=== PATIENT | male | born 1945 | race Hispanic/Latino ===

== ENCOUNTER 2017-11-25 12:33 | Emergency (ER) | payer MEDICARE ==
[~2017-11-25 12:33] MED LIST: ACET500C54 PO; ASPI-1197 PO; CALC-866 PO; DOXY100C2 PO; FISH1CAP63 PO; FOLI0.4T2 PO; GUAI-1235 PO; HYDR25TA PO; INSU3INS3 SQ; LOSA50TA37 PO; METF10004 PO; METOPROLOL ER PO; NITR0.4T SL; PANT40TA25 PO; PRAV10TA39 PO; REPA1TAB5 PO; TAMS0.4C32 PO; gas relief PO; iron PO; multivitamin PO; vitamin b12
[2017-11-25] MEDS ORDERED: MORPHINE SULFATE 4 MG/1ML SYG ONE (12:53)
[2017-11-25] MEDS ORDERED: ONDANSETRON HCL 4 MG/2 ML VIAL ONE (12:53)
[2017-11-25 13:00] LABS: BASOPHILS % (AUTO) 0.5 % (0.0-5.0); EOSINOPHILS % (AUTO) 0.3 % (0.0-8.0); MEAN CORPUSCULAR HGB CONC 34.4 g/dL (32.0-36.0); MEAN CORPUSCULAR VOLUME 89.9 fL (79-99); MONOCYTES % (AUTO) 7.8 % (3.0-13.0); NEUTROPHILS % (AUTO) 81.4 % (40.0-77.0); PLATELET COUNT (AUTO) 286 K/uL (130-400); RED BLOOD CELL COUNT(AUTO) 4.11 MIL/uL (4.50-6.20); RED CELL DISTRIBUTION WIDTH 14.2 % (11.0-15.5); WHITE BLOOD COUNT (AUTO) 16.4 K/uL (4.8-10.8)
[2017-11-25 13:10] LABS: CREATININE 0.7 mg/dL (0.5-1.5); POTASSIUM 3.5 mmol/L (3.5-5.1)
[2017-11-25 13:15] LABS: ALBUMIN 3.5 g/dL (3.5-5.0); BILIRUBIN,TOTAL 0.5 mg/dL (0.2-1.0); TOTAL PROTEIN, SERUM 7.4 g/dL (6.0-8.3)
[2017-11-25 13:26] LABS: CREATINE KINASE MB 1.5 ng/mL (0.5-3.6)
[2017-11-25] MEDS ORDERED: HYDROMORPHONE HCL 2 MG/ML VIAL ONE (16:21)
== END 2017-11-25 19:06 | disposition home or self-care (01) ==
LOC: EDH 12:33
DX: G62.9 Polyneuropathy, unspecified (principal); I25.10 Atherosclerotic heart disease of native coronary artery without angina pectoris; E11.9 Type 2 diabetes mellitus without complications; E78.5 Hyperlipidemia, unspecified; I10 Essential (primary) hypertension; Z90.49 Acquired absence of other specified parts of digestive tract
CPT/HCPCS: 36415; 71045; 80053; 82550; 82553; 82948; 84484; 85025; 93005; 96374; 96375; 99285; J1170; J2270; J2405

== ENCOUNTER 2018-01-16 15:36 | Emergency (ER) | payer MEDICARE ==
[2018-01-16] MEDS ORDERED: SODIUM CHLORIDE 0.9% 1000ML 1,000 ML IV ONE (16:11)
[2018-01-16] MEDS ORDERED: ONDANSETRON HCL MDV 20ML 2 MG/ML VIAL ONE (16:11)
[2018-01-16 16:12] LABS: EOSINOPHILS % (AUTO) 4.8 % (0.0-8.0); HEMATOCRIT 36.9 % (42-54); LYMPHOCYTES % (AUTO) 29.8 % (21.0-51.0); MEAN CORPUSCULAR HEMOGLOBIN 32.6 pg (27.0-33.0); MEAN CORPUSCULAR HGB CONC 35.4 g/dL (32.0-36.0); MEAN CORPUSCULAR VOLUME 92.1 fL (79-99); NEUTROPHILS % (AUTO) 56.4 % (40.0-77.0); NUCLEATED RED BLOOD CELLS 0.2 % (0.0-0.19); PLATELET COUNT (AUTO) 240 K/uL (130-400); RED BLOOD CELL COUNT(AUTO) 4.01 MIL/uL (4.50-6.20); WHITE BLOOD COUNT (AUTO) 7.8 K/uL (4.8-10.8)
[2018-01-16] MEDS ORDERED: MORPHINE SULFATE 4 MG/1ML SYG ONE (16:12)
[2018-01-16 16:25] LABS: CREATININE 0.9 mg/dL (0.5-1.5); POTASSIUM 3.8 mmol/L (3.5-5.1)
[2018-01-16 16:29] LABS: ALBUMIN 3.8 g/dL (3.5-5.0); BILIRUBIN,TOTAL 0.4 mg/dL (0.2-1.0); TOTAL PROTEIN, SERUM 7.6 g/dL (6.0-8.3)
== END 2018-01-16 18:33 | disposition home or self-care (01) ==
LOC: EDH 15:36
DX: R51 Headache (principal); I10 Essential (primary) hypertension; I25.10 Atherosclerotic heart disease of native coronary artery without angina pectoris; E11.9 Type 2 diabetes mellitus without complications; E78.5 Hyperlipidemia, unspecified
CPT/HCPCS: 36415; 70450; 80053; 85025; 96361; 96374; 96375; 99285; J2270; J7030

== ENCOUNTER 2018-01-29 04:17 | Observation (INO) | payer MEDICARE ==
[~2018-01-29] VITALS: Ht 167.6 cm; Wt 117.9 kg
[2018-01-29 04:38] LABS: BASOPHILS % (AUTO) 0.8 % (0.0-5.0); EOSINOPHILS % (AUTO) 4.9 % (0.0-8.0); HEMATOCRIT 36.4 % (42-54); LYMPHOCYTES % (AUTO) 37.7 % (21.0-51.0); MEAN CORPUSCULAR HEMOGLOBIN 31.4 pg (27.0-33.0); MEAN CORPUSCULAR VOLUME 92.4 fL (79-99); MONOCYTES % (AUTO) 9.5 % (3.0-13.0); NEUTROPHILS % (AUTO) 47.1 % (40.0-77.0); PLATELET COUNT (AUTO) 259 K/uL (130-400); RED BLOOD CELL COUNT(AUTO) 3.95 MIL/uL (4.50-6.20); WHITE BLOOD COUNT (AUTO) 8.8 K/uL (4.8-10.8)
[2018-01-29] MEDS ORDERED: NITROGLYCERIN 1GM/1 INCH PACKET TD ONE (04:45)
[2018-01-29] MEDS ORDERED: ASPIRIN 325 MG TABLET ONE (04:45)
[2018-01-29] MEDS ORDERED: ACETAMINOPHEN-CODEINE ELIXIR 5 ML UDCUP ONE (04:46)
[2018-01-29] MEDS ORDERED: MORPHINE SULFATE 4 MG/1ML SYG ONE (04:46)
[2018-01-29] MEDS ORDERED: LIDOCAINE HCL 2% VISCOUS 15 ML UDCUP ONE (04:47)
[2018-01-29] MEDS ORDERED: MAGNESIUM HYDROXIDE 30 ML/UDCUP ONE (04:47)
[2018-01-29 04:56] LABS: INR 1.03 (0.85-1.15); PARTIAL THROMBOPLASTIN TIME 24.7 SEC (26.3-35.5); PROTHROMBIN TIME 10.8 SEC (9.6-11.6)
[2018-01-29 05:02] LABS: CREATININE 0.9 mg/dL (0.5-1.5); POTASSIUM 3.4 mmol/L (3.5-5.1)
[2018-01-29 05:03] LABS: ALBUMIN 3.7 g/dL (3.5-5.0); BILIRUBIN,TOTAL 0.3 mg/dL (0.2-1.0); TOTAL PROTEIN, SERUM 7.3 g/dL (6.0-8.3)
[2018-01-29 05:15] LABS: B-TYPE NATRIURETIC PEPTIDE 7 pg/mL (0-100)
[2018-01-29 06:10] VITALS: BP 139/73
[2018-01-29] MEDS ORDERED: REPA1TAB5 PO (07:52)
[2018-01-29] MEDS ORDERED: OMEG1CAP67 PO (07:52)
[2018-01-29] MEDS ORDERED: GABA-531 PO (07:52)
[2018-01-29] MEDS ORDERED: INSLAN SQ (07:53)
[2018-01-29] MEDS ORDERED: GUAIFENESIN-DM 200/20 MG 10 ML PO PRN (11:00)
[2018-01-29] MEDS ORDERED: ACETAMINOPHEN 325 MG TAB PO PRN (11:00)
[2018-01-29] MEDS ORDERED: LACTULOSE 20 GM/30 ML UDCUP PO PRN (11:00)
[2018-01-29] MEDS ORDERED: ONDANSETRON HCL MDV 20ML 2 MG/ML VIAL IVP PRN (11:00)
[2018-01-29] MEDS ORDERED: NITROGLYCERIN 0.4 MG SL TAB SL PRN (11:00)
[2018-01-29 12:00] VITALS: BP 143/76
[2018-01-29] MEDS: **HM** VIT D3 5000 UNITS PO SCH (12:00)
[2018-01-29 13:41] LABS: CREATINE KINASE MB 2.2 ng/mL (0.5-3.6); CREATINE KINASE, TOTAL 181 U/L (21-232); MYOGLOBIN 149 ng/mL (10-92); TROPONIN I < 0.04 ng/mL (0.00-0.06)
[2018-01-29 16:00] VITALS: BP 128/72
[2018-01-29] MEDS: FISH OIL 1000 MG/CAP PO SCH ×2 (17:58→20:57)
[2018-01-29] MEDS: METFORMIN HCL 500 MG TABLET PO SCH (17:58)
[2018-01-29] MEDS: REPAGLINIDE 1 MG TAB PO SCH ×2 (17:59→20:57)
[2018-01-29 19:30] VITALS: BP 139/64
[2018-01-29] MEDS: TAMSULOSIN HCL 0.4 MG CAP.ER.24H PO SCH (20:57)
[2018-01-29] MEDS: GABAPENTIN 300 MG CAPSULE PO SCH (20:57)
[2018-01-29] MEDS: ASPIRIN 81MG TAB.CHEW PO SCH (20:57)
[2018-01-29] MEDS ORDERED: **HM** PRAVASTATIN 10MG PO SCH (21:00)
[2018-01-29] MEDS: INSULIN GLARGINE 100 UNITS/ML 10 ML VIAL SQ SCH (21:04)
[2018-01-29 21:14] LABS: APPEARANCE,URINE Clear (CLEAR); BILIRUBIN,URINE Negative (NEGATIVE); COLOR,URINE Yellow (YELLOW); GLUCOSE, URINE (UA) Negative (NEGATIVE); KETONES,URINE Negative (NEGATIVE); LEUKOCYTE ESTERASE ,URINE Negative (NEGATIVE); NITRATE,URINE Negative (NEGATIVE); OCCULT BLOOD,URINE Negative (NEGATIVE); PH,URINE 6.5 (5.0-8.0); PROTEIN,URINE Trace (NEGATIVE); UROBILINOGEN,URINE 0.2 mg/dL (0.2-1.0)
[2018-01-29 21:22] LABS: CREATINE KINASE MB 2.6 ng/mL (0.5-3.6); CREATINE KINASE, TOTAL 260 U/L (21-232); MYOGLOBIN 130 ng/mL (10-92); TROPONIN I < 0.04 ng/mL (0.00-0.06)
[2018-01-29 23:58] VITALS: BP 126/59
[2018-01-30 04:02] VITALS: BP 144/73
[2018-01-30 06:40] LABS: CREATININE 0.7 mg/dL (0.5-1.5); MAGNESIUM 1.5 mg/dL (1.80-2.40); POTASSIUM 4.1 mmol/L (3.5-5.1)
[2018-01-30 06:44] LABS: HEMOGLOBIN A1C 6.7 % (4.0-6.0)
[2018-01-30 08:00] VITALS: BP 143/64
[2018-01-30] MEDS: FOLIC ACID 1 MG TABLET PO SCH (08:20)
[2018-01-30] MEDS: METFORMIN HCL 500 MG TABLET PO SCH ×2 (08:20→22:23)
[2018-01-30] MEDS: LOSARTAN 50 MG TABLET PO SCH (08:20)
[2018-01-30] MEDS: PANTOPRAZOLE SODIUM 40 MG TABLET.DR PO SCH (08:20)
[2018-01-30] MEDS: HYDROCHLOROTHIAZIDE 25 MG TABLET PO SCH (08:20)
[2018-01-30] MEDS: GABAPENTIN 300 MG CAPSULE PO SCH ×2 (08:20→22:20)
[2018-01-30] MEDS: ENOXAPARIN SODIUM 40 MG/0.4 ML SYRINGE SQ SCH (08:21)
[2018-01-30] MEDS: INSULIN GLARGINE 100 UNITS/ML 10 ML VIAL SQ SCH ×2 (08:30→22:25)
[2018-01-30] MEDS: REPAGLINIDE 1 MG TAB PO SCH ×2 (09:00→22:24)
[2018-01-30] MEDS: FISH OIL 1000 MG/CAP PO SCH ×2 (09:00→22:23)
[2018-01-30] MEDS ORDERED: REGADENOSON 0.4 MG/5 ML PF SYG IVP SCH (11:00)
[2018-01-30 12:00] VITALS: BP 137/69
[2018-01-30] MEDS: **HM** VIT D3 5000 UNITS PO SCH (12:00)
[2018-01-30 16:00] VITALS: BP 151/76
[2018-01-30 19:45] VITALS: BP 153/71
[2018-01-30] MEDS ORDERED: ATORVASTATIN CALCIUM 40 MG TABLET PO SCH (21:00)
[2018-01-30] MEDS: TAMSULOSIN HCL 0.4 MG CAP.ER.24H PO SCH (22:20)
[2018-01-30] MEDS: METOPROLOL TARTRATE 50 MG TAB PO SCH (22:20)
[2018-01-30] MEDS: ASPIRIN 81MG TAB.CHEW PO SCH (22:20)
[2018-01-30 23:45] VITALS: BP 136/79
[2018-01-31 04:00] VITALS: BP 138/76
[2018-01-31 07:00] VITALS: BP 140/68
[2018-01-31] MEDS: HYDROCHLOROTHIAZIDE 25 MG TABLET PO SCH (09:20)
[2018-01-31] MEDS: LOSARTAN 50 MG TABLET PO SCH (09:20)
[2018-01-31] MEDS: METOPROLOL TARTRATE 50 MG TAB PO SCH (09:20)
[2018-01-31] MEDS: FOLIC ACID 1 MG TABLET PO SCH (09:21)
[2018-01-31] MEDS: METFORMIN HCL 500 MG TABLET PO SCH ×2 (09:21→16:38)
[2018-01-31] MEDS: GABAPENTIN 300 MG CAPSULE PO SCH (09:21)
[2018-01-31] MEDS: REPAGLINIDE 1 MG TAB PO SCH ×2 (09:25→16:38)
[2018-01-31] MEDS: PANTOPRAZOLE SODIUM 40 MG TABLET.DR PO SCH (09:25)
[2018-01-31] MEDS: FISH OIL 1000 MG/CAP PO SCH ×2 (09:25→16:38)
[2018-01-31] MEDS: ENOXAPARIN SODIUM 40 MG/0.4 ML SYRINGE SQ SCH (09:26)
[2018-01-31] MEDS: INSULIN GLARGINE 100 UNITS/ML 10 ML VIAL SQ SCH (09:33)
[2018-01-31 11:00] VITALS: BP 148/68
[2018-01-31] MEDS: **HM** VIT D3 5000 UNITS PO SCH (12:00)
[2018-01-31 15:00] VITALS: BP 148/84
== END 2018-01-31 17:35 | disposition home or self-care (01) ==
LOC: EDH 04:17 → EDHIP 05:45 → 3AH 05:58
PROVIDERS: ADMIT Family Medicine; ATTEND Family Medicine
DX: I25.10 Atherosclerotic heart disease of native coronary artery without angina pectoris (principal); I10 Essential (primary) hypertension; E78.5 Hyperlipidemia, unspecified; E11.40 Type 2 diabetes mellitus with diabetic neuropathy, unspecified; E11.51 Type 2 diabetes mellitus with diabetic peripheral angiopathy without gangrene; E66.01 Morbid (severe) obesity due to excess calories; G45.9 Transient cerebral ischemic attack, unspecified; Z86.73 Personal history of transient ischemic attack (TIA), and cerebral infarction without residual deficits; Z90.49 Acquired absence of other specified parts of digestive tract
CPT/HCPCS: 36415 ×2; 71045; 78452; 80048; 80053; 80061; 81003; 82550 ×3; 82553 ×2; 82948 ×10; 83036; 83605 ×2; 83690; 83735; 83874 ×2; 83880; 84484 ×3; 85025; 85378; 85610; 85730; 87880; 93005 ×3; 93017; 93306; 96372 ×3; 99285; A9500 ×2; G0378 ×60; J1650 ×2; J2270; J2785; 96374

== ENCOUNTER 2018-02-22 17:54 | Emergency (ER) | payer MEDICARE ==
[~2018-02-22 17:54] MED LIST changes: -DOXY100C2 PO; -FISH1CAP63 PO; +GABA-531 PO; -GUAI-1235 PO; +INSLAN SQ; -INSU3INS3 SQ; +OMEG1CAP67 PO
[2018-02-22] MEDS ORDERED: SODIUM CHLORIDE 0.9% 1000ML 1,000 ML IV ONE (18:12)
[2018-02-22 18:28] LABS: BASOPHILS % (AUTO) 0.7 % (0.0-5.0); EOSINOPHILS % (AUTO) 2.8 % (0.0-8.0); LYMPHOCYTES % (AUTO) 19.3 % (21.0-51.0); MEAN CORPUSCULAR HGB CONC 34.5 g/dL (32.0-36.0); MEAN CORPUSCULAR VOLUME 92.8 fL (79-99); MONOCYTES % (AUTO) 8.8 % (3.0-13.0); NEUTROPHILS % (AUTO) 68.4 % (40.0-77.0); PLATELET COUNT (AUTO) 254 K/uL (130-400); RED CELL DISTRIBUTION WIDTH 15.2 % (11.0-15.5); WHITE BLOOD COUNT (AUTO) 9.2 K/uL (4.8-10.8)
[2018-02-22 18:42] LABS: INR 1.02 (0.85-1.15); PARTIAL THROMBOPLASTIN TIME 25.1 SEC (26.3-35.5); PROTHROMBIN TIME 10.7 SEC (9.6-11.6)
[2018-02-22 18:53] LABS: CREATININE 0.9 mg/dL (0.5-1.5); POTASSIUM 4.1 mmol/L (3.5-5.1)
[2018-02-22 19:10] LABS: ALBUMIN 3.8 g/dL (3.5-5.0); BILIRUBIN,TOTAL 0.3 mg/dL (0.2-1.0); CREATINE KINASE MB 4.2 ng/mL (0.5-3.6); THYROID STIMULATING HORMONE 0.72 uIU/mL (0.36-3.74); TOTAL PROTEIN, SERUM 7.2 g/dL (6.0-8.3)
[2018-02-22 20:28] LABS: APPEARANCE,URINE Clear (CLEAR); BILIRUBIN,URINE Negative (NEGATIVE); COLOR,URINE Yellow (YELLOW); GLUCOSE, URINE (UA) Negative (NEGATIVE); KETONES,URINE Negative (NEGATIVE); LEUKOCYTE ESTERASE ,URINE Negative (NEGATIVE); NITRATE,URINE Negative (NEGATIVE); OCCULT BLOOD,URINE Negative (NEGATIVE); PROTEIN,URINE Negative (NEGATIVE); UROBILINOGEN,URINE 0.2 mg/dL (0.2-1.0)
== END 2018-02-22 21:38 | disposition home or self-care (01) ==
LOC: EDH 17:54
DX: R53.1 Weakness (principal); E11.40 Type 2 diabetes mellitus with diabetic neuropathy, unspecified; E78.5 Hyperlipidemia, unspecified; I10 Essential (primary) hypertension; R79.1 Abnormal coagulation profile; I25.10 Atherosclerotic heart disease of native coronary artery without angina pectoris; L97.929 Non-pressure chronic ulcer of unspecified part of left lower leg with unspecified severity; Z90.49 Acquired absence of other specified parts of digestive tract; Z79.4 Long term (current) use of insulin
CPT/HCPCS: 36415; 70450; 80053; 81003; 82550 ×2; 82553 ×2; 84443; 84484 ×2; 85025; 85610; 85730; 93005 ×2; 99285; J7030

== ENCOUNTER → 2019-02-15 | Outpatient (CLI) | payer MEDICARE ==
[~2019-02-15] MED LIST changes: +AEC81 PO; +ALBUHFA IH; +BUDE90AE IH; +FAMO20TA8 PO; +FLUT16H NASAL; -LOSA50TA37 PO; +LOSA50TA64 PO; +METF-446 PO; -METF10004 PO; +MONT10TA24 PO
== END | disposition home or self-care (01) ==
LOC: SHCH 12:02
PROVIDERS: ATTEND Internal Medicine Cardiovascular Disease
DX: I87.2 Venous insufficiency (chronic) (peripheral) (principal); I87.319 Chronic venous hypertension (idiopathic) with ulcer of unspecified lower extremity; I25.10 Atherosclerotic heart disease of native coronary artery without angina pectoris; I10 Essential (primary) hypertension; E11.9 Type 2 diabetes mellitus without complications; K21.9 Gastro-esophageal reflux disease without esophagitis; E66.9 Obesity, unspecified; Z90.49 Acquired absence of other specified parts of digestive tract
CPT/HCPCS: 93970

== ENCOUNTER 2019-02-25 03:58 | Observation (INO) | payer MEDICARE ==
[~2019-02-25] VITALS: Ht 170.2 cm; Wt 125.8 kg
[~2019-02-25 03:58] MED LIST changes: -AEC81 PO; -ALBUHFA IH; -BUDE90AE IH; -FAMO20TA8 PO; -FLUT16H NASAL; -MONT10TA24 PO
[2019-02-25 04:37] LABS: BASOPHILS % (AUTO) 0.6 % (0.0-5.0); EOSINOPHILS % (AUTO) 2.5 % (0.0-8.0); HEMATOCRIT 39.7 % (42-54); LYMPHOCYTES % (AUTO) 24.9 % (21.0-51.0); MEAN CORPUSCULAR HEMOGLOBIN 32.1 pg (27.0-33.0); MEAN CORPUSCULAR HGB CONC 34.3 g/dL (32.0-36.0); MEAN CORPUSCULAR VOLUME 93.5 fL (79-99); MONOCYTES % (AUTO) 8.8 % (3.0-13.0); NEUTROPHILS % (AUTO) 63.2 % (40.0-77.0); NUCLEATED RED BLOOD CELLS 0.1 % (0.0-0.19); PLATELET COUNT (AUTO) 261 K/uL (130-400); RED BLOOD CELL COUNT(AUTO) 4.25 MIL/uL (4.50-6.20); RED CELL DISTRIBUTION WIDTH 14.3 % (11.0-15.5); WHITE BLOOD COUNT (AUTO) 9.3 K/uL (4.8-10.8)
[2019-02-25 04:41] LABS: CREATININE 0.8 mg/dL (0.5-1.5); POTASSIUM 3.5 mmol/L (3.5-5.1)
[2019-02-25 04:46] LABS: ALBUMIN 3.7 g/dL (3.5-5.0); BILIRUBIN,TOTAL 0.4 mg/dL (0.2-1.0); TOTAL PROTEIN, SERUM 7.2 g/dL (6.0-8.3)
[2019-02-25 04:56] LABS: PARTIAL THROMBOPLASTIN TIME 26.6 SEC (26.3-35.5); PROTHROMBIN TIME 10.5 SEC (9.6-11.6)
[2019-02-25] MEDS ORDERED: MAG HYDROX/AL HYDROX/SIMETH ES 30 ML SUSP UDCUP ONE (05:19)
[2019-02-25] MEDS ORDERED: NITROGLYCERIN 1GM/1 INCH PACKET TD ONE (05:19)
[2019-02-25] MEDS ORDERED: LIDOCAINE HCL 2% VISCOUS 15 ML UDCUP ONE (05:19)
[2019-02-25] MEDS ORDERED: ASPIRIN 325 MG TABLET ONE (05:19)
[2019-02-25 05:29] LABS: B-TYPE NATRIURETIC PEPTIDE 19 pg/mL (0-100)
[2019-02-25] MEDS ORDERED: MORPHINE SULFATE 2 MG/ML 1ML SYG IV PRN (06:00)
[2019-02-25] MEDS ORDERED: ACETAMINOPHEN 325 MG TAB PO PRN (06:00)
[2019-02-25] MEDS ORDERED: ONDANSETRON HCL 4 MG/2 ML VIAL IV PRN (06:00)
[2019-02-25] MEDS ORDERED: SIMETHICONE 80 MG TAB.CHEW PO PRN (06:00)
[2019-02-25] MEDS: INSULIN HUMULIN R 100 UNIT/ML 3ML SQ SCH ×4 (07:30→21:00)
[2019-02-25 08:21] VITALS: BP 118/49
[2019-02-25] MEDS ORDERED: ALBUHFA IH (11:14)
[2019-02-25] MEDS ORDERED: MONT10TA24 PO (11:14)
[2019-02-25] MEDS ORDERED: AEC81 PO (11:14)
[2019-02-25 12:00] VITALS: BP 120/59
[2019-02-25 14:24] LABS: APPEARANCE,URINE Clear (CLEAR); BILIRUBIN,URINE Negative (NEGATIVE); COLOR,URINE Yellow (YELLOW); GLUCOSE, URINE (UA) Negative (NEGATIVE); KETONES,URINE Negative (NEGATIVE); LEUKOCYTE ESTERASE ,URINE Negative (NEGATIVE); NITRATE,URINE Negative (NEGATIVE); OCCULT BLOOD,URINE Negative (NEGATIVE); PH,URINE 5.5 (5.0-8.0); PROTEIN,URINE Trace mg/dL (NEGATIVE)
[2019-02-25 15:06] LABS: BACTERIA,URINE Rare /HPF (None Seen); RBC,URINE 0-1 /HPF (0-1); SQUAMOUS EPITHELIAL CELL,UR 0-2 /HPF (0-2); WBC,URINE 0-1 /HPF (0-1)
[2019-02-25 16:00] VITALS: BP 141/68
[2019-02-25] MEDS: FAMOTIDINE 20MG TAB 20 MG TAB PO SCH ×2 (18:04→21:00)
[2019-02-25] MEDS: ENOXAPARIN SODIUM 40 MG/0.4 ML SYRINGE SQ SCH (18:05)
[2019-02-25 20:30] VITALS: BP 146/66
[2019-02-25 23:56] VITALS: BP 133/67
[2019-02-26 04:00] VITALS: BP_SYST 124; BP_SYST 146; BP_DIAS 60; BP_DIAS 66
[2019-02-26] MEDS: INSULIN HUMULIN R 100 UNIT/ML 3ML SQ SCH ×3 (06:45→16:30)
[2019-02-26 07:47] VITALS: BP 156/78
[2019-02-26] MEDS: FAMOTIDINE 20MG TAB 20 MG TAB PO SCH (09:59)
[2019-02-26] MEDS: ENOXAPARIN SODIUM 40 MG/0.4 ML SYRINGE SQ SCH (10:00)
[2019-02-26 11:00] VITALS: BP 144/75
[2019-02-26 16:00] VITALS: BP 134/66
--- NOTE | 2019-02-26 16:21 | NUR ---
DCP CM met with pt discussed dc plans. Pt is semi-independent prior to admission, lives at home with alexia. Has a walker, cane, wheelchair. Denies any equipments/services. Pt feels safe to go back home, pt still drives, neice and family able to assist with transportation and needs as necessary. DC plan to home once stable. CM to cont to follow up. Addendum: 02/26/19 at 1622 by MIREYA STEVENSON LVN CM Amended: Links added.
[2019-02-26] MEDS ORDERED: FAMO20TA8 PO (16:53)
== END 2019-02-26 18:07 | disposition home or self-care (01) ==
LOC: EDH 03:58 → EDHIP 05:50 → 4BH 07:54
PROVIDERS: ADMIT Hospitalist; ATTEND Hospitalist
DX: R07.89 Other chest pain (principal); R10.13 Epigastric pain; I10 Essential (primary) hypertension; I25.10 Atherosclerotic heart disease of native coronary artery without angina pectoris; E11.51 Type 2 diabetes mellitus with diabetic peripheral angiopathy without gangrene; E78.5 Hyperlipidemia, unspecified; E66.01 Morbid (severe) obesity due to excess calories; Z83.3 Family history of diabetes mellitus; Z82.49 Family history of ischemic heart disease and other diseases of the circulatory system
CPT/HCPCS: 36415; 71045; 74176; 80053; 81001; 82150; 82550; 82948 ×7; 83690; 83880; 84484 ×4; 85025; 85610; 85730; 93005; 96372 ×2; 99284; G0378 ×36; J1650 ×2; J1815